=== PATIENT | male | born 1960 | race Caucasian/White ===

== ENCOUNTER 2016-10-28 12:12 | Emergency (ER) | payer MEDICAID, OTHER ==
[2016-10-28] MEDS ORDERED: PROPARACAINE 0.5% 15 ML OPHT DROP ONE (12:28)
[2016-10-28 12:36] VITALS: BP 162/99; PULSE 83; RESP 18; TEMP 98; O2SAT 93
[2016-10-28] MEDS ORDERED: KETOROLAC 0.5% 5 ML OPHT.BTL LEFTEYE ONE (12:36)
[2016-10-28] MEDS ORDERED: OFLOXACIN 0.3% SOLN PREPACK OPHT.BTL TAKEHOME ONE (12:36)
--- NOTE | 2016-10-28 12:41 | UCPHY ---
H & P Patient Type: New Chief Complaint Nursing Narrative: LEFT EYE INJURY OCCURRED LAST NIGHT WHEN POKED WITH FINGER, NOW WITH REDNESS AND TEARING FROM EYE, FEELS LIKE FOREIGN BODY Time Seen by Provider: 10/28/16 12:23 HPI/ROS: CHIEF COMPLAINT: Left eye pain HISTORY OF PRESENT ILLNESS: The patient is a 56-year-old man who comes to the Urgent Care complaining of left eye pain after he accidentally poked himself in the eye last night. He states it feels like there is gravel in his eye. He has had watery discharge. No vision changes. He does not wear contacts or glasses. No fevers. No recent illness. REVIEW OF SYSTEMS: Constitutional: denies: chills, fever, recent illness, recent injury EENTM: See HPI Respiratory: denies: cough, shortness of breath Cardiac: denies: chest pain, irregular heart rate, lightheadedness, palpitations Gastrointestinal/Abdominal: denies: abdominal pain, diarrhea, nausea, vomiting, blood streaked stools Genitourinary: denies: dysuria, frequency, hematuria, pain Musculoskeletal: denies: joint pain, muscle pain Skin: denies: lesions, rash, jaundice, bruising Neurological: denies: headache, numbness, paresthesia, tingling, dizziness, weakness Hematologic/Lymphatic: denies: blood clots, easy bleeding, easy bruising Immunologic/allergic: denies: HIV/AIDS, transplant EXAM: GENERAL: Well-appearing, well-nourished and in no acute distress. HEAD: Atraumatic, normocephalic. EYES: Left eye with corneal abrasions seen on slit-lamp exam, no visible infection or foreign body. No dendritic lesion. Pupils equal round and reactive to light, extraocular movements intact, sclera anicteric, conjunctiva are normal. ENT: TMs normal, nares patent, oropharynx clear without exudates. Moist mucous membranes. NECK: Normal range of motion, supple without lymphadenopathy or JVD. LUNGS: Breath sounds clear to auscultation bilaterally and equal. No wheezes rales or rhonchi. HEART: Regular rate and rhythm without murmurs, rubs or gallops. ABDOMEN: Soft, nontender, normoactive bowel sounds. No guarding, no rebound. No masses appreciated. BACK: No CVA tenderness, no spinal tenderness, step-offs or deformities EXTREMITIES: Normal range of motion, no pitting or edema. No clubbing or cyanosis. NEUROLOGICAL: Cranial nerves II through XII grossly intact. Normal speech, normal gait. 5/5 strength, normal movement in all extremities, normal sensation PSYCH: Normal mood, normal affect. SKIN: Warm, dry, normal turgor, no visible rashes or lesions. Source: Patient Exam Limitations: No limitations - Medical/Surgical History Hx Asthma: No Hx Chronic Respiratory Disease: No Hx Diabetes: No Hx Cardiac Disease: No Hx Renal Disease: No Hx Cirrhosis: No Hx Alcoholism: No Other PMH: DENIES - Family History Significant Family History: No pertinent family hx - Social History Smoking Status: Heavy smoker Alcohol Use: Sober Drug Use: None Constitutional: Initial Vital Signs Temperature (C) 36.7 C 10/28/16 12:31 Heart Rate 83 10/28/16 12:31 Respiratory Rate 18 10/28/16 12:31 Blood Pressure 162/99 H 10/28/16 12:31 O2 Sat (%) 93 10/28/16 12:31 O2 Delivery Mode Room Air Allergies/Adverse Reactions: No Known Allergies Allergy (Verified 10/28/16 12:30) Home Medications: Medication Instructions Recorded No Medications [No Meds] 03/20/13 Ketorolac 0.5% [Acular 0.5% Opht 3 ml OP TID PRN #1 opht.btl 10/28/16 Drops (*)] Medical Decision Making ED Course/Re-evaluation: the patient has a clear corneal abrasion. I will treated with antibiotics in ocular. I will have him follow up with Ophthalmology. He understands and agrees with this plan. He declines any further workup or testing at this time. We discussed indications for returning. Differential Diagnosis: Partial list of the Differential diagnosis considered include but were not limited to; corneal abrasion, foreign body and although unlikely based on the history and physical exam, I also considered fungal lesion, conjunctivitis, iritis, glaucoma. I discussed these differential diagnoses and the plan with the patient as well as the usual and expected course. The patient understands that the diagnosis is provisional and that in medicine we are not always correct and that further workup is often warranted. Usual and customary warnings were given. All of the patient's questions were answered. The patient was instructed to return to the emergency department should the symptoms at all worsen or return, otherwise to followup with the physician as we discussed. Departure - Departure Disposition: Home, Routine, Self-Care Clinical Impression: Corneal abrasion Qualifiers: Encounter type: initial encounter Laterality: left Qualifier Code: (S05.02XA) Injury of conjunctiva and corneal abrasion without foreign body, left eye, initial encounter Condition: Fair Instructions: Corneal Abrasion (ED) Additional Instructions: Use the Ocuflox eyedrops 2 drops every 4 hours for 4 days or until you follow up with the neon molder. Use the Acular drops 2 drops every 6 hours as needed for pain. Referrals: NONE *PRIMARY CARE P,. [Primary Care Provider] - As per Instructions Sarmad Tapia MD [Medical Doctor] - As per Instructions Prescriptions: Ketorolac 0.5% [Acular 0.5% Opht Drops (*)] 3 ml OP TID PRN #1 opht.btl PRN Reason: Pain, Mild - PQRS PQRS Measurement: Not applicable
== END 2016-10-28 13:08 | disposition home or self-care (01) ==
LOC: CED 12:12
DX: S05.02XA Injury of conjunctiva and corneal abrasion without foreign body, left eye, initial encounter (principal); F17.200 Nicotine dependence, unspecified, uncomplicated
CPT/HCPCS: 99204-PO; G0463-PO

== ENCOUNTER → 2017-01-29 | Outpatient (CLI) | payer OTHER | LOC: CIMAGING 12:10 | PROVIDERS: ATTEND Family Medicine | DX: M25.511 Pain in right shoulder (principal) | CPT/HCPCS: 73030-PO ==

== ENCOUNTER 2017-02-20 20:57 | Emergency (ER) | payer OTHER ==
[2017-02-20 21:11] VITALS: BP 163/115; PULSE 86; RESP 20; TEMP 97.9; O2SAT 92
[2017-02-20] MEDS ORDERED: PENICILLIN VK 500 MG TAB PO ONE (21:42)
--- NOTE | 2017-02-20 21:42 | EDPHY ---
H & P Time Seen by Provider: 02/20/17 21:09 HPI/ROS: HPI Right lower tooth pain. 57-year-old male by private vehicle with his . He complains of worsening right lower jaw tooth pain onset earlier this afternoon, worsening throughout the day. He has a history of poor dentition and has had multiple teeth pulled. He denies fever. No neck pain. No history of trauma. No other complaint. ROS: Constitutional: No fever, no chills. No weakness. Eyes: No discharge. No changes in vision. ENT: No sore throat. No nasal congestion or rhinorrhea. As above. Musculoskeletal: No back pain. No neck pain. No myalgias or arthralgias. Skin: No rashes. Neurological: No headache. No focal weakness or altered sensation. Past medical history: As above. Multiple orthopedic injuries. Social history: Heavy smoker. Here with his . Physical Exam: General Appearance: Alert, no distress. This patient is responding to questions appropriately and in full sentences. This patient appears well- hydrated and well-nourished. Eyes: Pupils equal and round no pallor or injection. No lid edema, erythema or injection. ENT, Mouth: Mucous membranes are moist. The pharyngeal tissues are unremarkable. No edema or swelling. No asymmetry suggestive of abscess. No erythema or exudates. Poor dentition. Right 2nd premolar, tender on axial compression. No irma gingival swelling suggestive of drainable abscess. No swelling of the buccal mucosa or associated facial swelling. No elevation of the tongue. No submandibular lymphadenopathy. Neurological: Motor sensory function is grossly intact. Cranial nerves are normal. Gait is normal. Skin: Warm and dry, no rashes. Musculoskeletal: Neck is supple and nontender. No cervical lymphadenopathy. Extremities are symmetrical. All joints range without pain or impingement. Psychiatric: No agitation. No depression. Database: EKG: Imaging: Procedures: Inferior alveolar nerve block: Landmarks identified, 2 cc of bupivacaine without epinephrine injected into the pharyngomandibular triangle. Excellent anesthesia obtained of the inferior alveolar nerve distribution no complications. Patient tolerated procedure well. Emergency department course: After above noted nerve block, patient had excellent relief of his pain. Plan will be to start him on penicillin VK, 500 mg in the emergency department. Will continue him on this medication. I will prescribe him high-dose ibuprofen as well as Vicodin for breakthrough pain until he can see his dentist on Tuesday. He is in agreement with this plan. Follow-up and return to emergency department precautions reviewed with him. All of his questions were answered. He was discharged in good condition. Differential Diagnosis: The differential diagnosis on this patient includes but is not limited to dental cavity, apical abscess. Dry socket, osteomyelitis unlikely. This represents a partial list of diagnoses considered. These considerations are based on history, physical exam, past history, reassessment and diagnostic testing. Smoking Status: Heavy smoker Constitutional: Initial Vital Signs Temperature (C) 36.6 C 02/20/17 21:08 Heart Rate 86 02/20/17 21:08 Respiratory Rate 20 02/20/17 21:08 Blood Pressure 163/115 H 02/20/17 21:08 O2 Sat (%) 92 02/20/17 21:08 O2 Delivery Mode Room Air Allergies/Adverse Reactions: No Known Allergies Allergy (Verified 02/20/17 21:07) Home Medications: Medication Instructions Recorded No Medications [No Meds] 03/20/13 Penicillin V Potassium [Penicillin 500 mg PO QID #28 tablet 02/20/17 VK] Medical Decision Making - Data Points Medications Given: Discontinued Medications Hydrocodone Bitart/Acetaminophen ([place] 5/325mg Prepack#6) 1 btl TAKEHOME EDNOW ONE Stop: 02/20/17 21:45 Last Admin: 02/20/17 21:47 Dose: 1 btl Penicillin V Potassium (Pen Vk) 500 mg PO EDNOW ONE PRN Reason: Protocol Stop: 02/20/17 21:43 Last Admin: 02/20/17 21:43 Dose: 500 mg Departure - Departure Disposition: Home, Routine, Self-Care Clinical Impression: Dental implant pain Condition: Good Instructions: Dental Abscess (ED), Toothache (ED) Additional Instructions: Read and follow provided instructions. Follow-up with your dentist on Tuesday for re-evaluation and further management. Take antibiotics as prescribed. Ibuprofen dosin mg every 6 hours with meals for the next 3 days only. [place]/Percocet dosin-2 every 4-6 hours for [address] Do not drive on this medication. Return to the emergency department for worsening pain, fever or other serious concerns. Referrals: NONE *PRIMARY CARE P,. [Primary Care Provider] - As per Instructions [facility] [Outside] - As per Instructions Prescriptions: Penicillin V Potassium [Penicillin VK] 500 mg PO QID #28 tablet
[2017-02-20] MEDS ORDERED: HYDROCOD/APAP 5/325 PREPACK#6 BTL TAKEHOME ONE (21:44)
== END 2017-02-20 22:00 | disposition home or self-care (01) ==
LOC: CED 20:57
PROC: 3E0X3BZ Introduction of Anesthetic Agent into Cranial Nerves, Percutaneous Approach (ICD-10-PCS; principal; 2017-02-20)
DX: T85.848A Pain due to other internal prosthetic devices, implants and grafts, initial encounter (principal); F17.200 Nicotine dependence, unspecified, uncomplicated; Y82.8 Other medical devices associated with adverse incidents

== ENCOUNTER → 2017-03-16 | Outpatient (CLI) | payer OTHER, MEDICAID | LOC: FIMAGING 16:08 | PROVIDERS: ATTEND Orthopaedic Surgery Hand Surgery | DX: M75.81 Other shoulder lesions, right shoulder (principal); M75.21 Bicipital tendinitis, right shoulder; M19.011 Primary osteoarthritis, right shoulder ==